=== PATIENT | female | born 1995 | race Caucasian/White ===

== ENCOUNTER 2018-05-15 22:28 | Emergency (ER) | payer BC, MEDICAID ==
[2018-05-15] MEDS ORDERED: Amoxicillin 500 MG Cap ONE (22:40)
--- NOTE | 2018-05-15 22:46 | EDM.PDOC ---
ED HPI GENERAL MEDICAL PROBLEM - General Chief Complaint: General Stated Complaint: right ear pain Time Seen by Provider: 05/15/18 22:35 Source of Information: Reports: Patient, RN History Limitations: Reports: No Limitations - History of Present Illness INITIAL COMMENTS - FREE TEXT/NARRATIVE: 22 yr female presents with left ear pain. States she was at work and heard a pop to her ear and tried to open the ear and make it pop and the pain got considerably worse. States history of ear infections and tubes to ears as a child. States some cough lately with this. States some temperature yesterday noted. Left Ear Pain Score (Numeric/FACES): 5 ED ROS GENERAL - Review of Systems Review Of Systems: See Below Constitutional: Denies: Fever, Chills HEENT: Reports: Ear Pain, Other (some pain into jaw). Denies: Ear Discharge, Nose Pain, Throat Swelling Respiratory: Reports: Cough Cardiovascular: Reports: No Symptoms GI/Abdominal: Reports: No Symptoms Musculoskeletal: Reports: No Symptoms Skin: Reports: No Symptoms Neurological: Reports: No Symptoms Psychiatric: Reports: No Symptoms Hematologic/Lymphatic: Reports: No Symptoms Immunologic: Reports: No Symptoms ED EXAM, GENERAL - Physical Exam Exam: See Below Exam Limited By: No Limitations General Appearance: Alert, No Apparent Distress Ears: Normal External Exam, Hearing Grossly Normal Ear Exam: Left Ear: TM Red, TM Bulging Nose: Normal Inspection, Normal Mucosa Throat/Mouth: Normal Voice, No Airway Compromise Head: Atraumatic, Normocephalic Neck: Supple, Non-Tender Respiratory/Chest: Lungs Clear, Normal Breath Sounds Cardiovascular: Regular Rate, Rhythm Neurological: Alert, Oriented, Normal Cognition, Normal Gait Psychiatric: Normal Affect, Normal Mood Skin Exam: Warm, Dry, Normal Color Course - Vital Signs Last Recorded V/S: Last Vital Signs Temp 97.2 F 05/15/18 22:33 Pulse 64 05/15/18 22:33 Resp 16 05/15/18 22:33 BP 128/93 H 05/15/18 22:33 Pulse Ox 100 05/15/18 22:33 Departure - Departure Time of Disposition: 22:48 Disposition: Home, Self-Care 01 Condition: Good Clinical Impression: Otitis media in diseases classified elsewhere, left ear - Discharge Information - Assessment/Plan Plan: Discharge to self care. Amoxicillin 500 mg po tid X 10 days. Recommend rest, fluids and continue antibiotic until finished. RTC in 48 hour if no improvement.
== END 2018-05-15 22:45 | disposition home or self-care (01) ==
LOC: LB.ED 22:28
DX: H66.92 Otitis media, unspecified, left ear (principal)
CPT/HCPCS: 99282; A9270-GY